=== PATIENT | male | born 1990 | race Asian ===

== ENCOUNTER 2018-06-23 11:49 | Emergency (ER) | payer SELFPAY ==
[~2018-06-23] VITALS: Ht 167.6 cm; Wt 113.9 kg
[~2018-06-23 11:49] MED LIST: HYDRALAZINE HY100 MG PO; METOPROLOL TART25 M1 PO; ZES10 PO
[2018-06-23 11:53] VITALS: BP 162/116; Ht 167.6 cm; Wt 113.9 kg
== END 2018-06-23 14:22 | disposition home or self-care (01) ==
LOC: ED 11:49
DX: Z03.89 Encounter for observation for other suspected diseases and conditions ruled out (principal); R07.0 Pain in throat; I10 Essential (primary) hypertension